=== PATIENT | female | born 1990 | race Asian ===

== ENCOUNTER → 2016-04-20 | Outpatient (CLI) | payer OTHER ==
--- NOTE | 2016-04-21 12:55 | EXERCISE STRESS ECHO ---
*NOTICE TO RECEIVING CONSTITUTION PARTY AGENCY This information is strictly Confidential and protected under [place] law. [place] law prohibits you from making any further disclosure of this information unless further disclosure is expressly permitted by the written consent of the person to whom it pertains or is authorized by law. A general authorization for the release of medical or other information is not sufficient for this purpose. Hospital accepts no responsibility if the information is made available to any other person, INCLUDING THE PATIENT. Interpretation Summary * Name: ORVILLE JIMENEZ Study Date: 04/20/2016 09:43 AM BP: 132/85 mmHg * Patient Location: [facility] HR: 66 * : 1990 (M/d/yyyy) Gender: Female Height: 62 in * Age: 26 yrs Ethnicity: Weight: 174 lb * Ordering Physician: Julia Simon * Referring Physician: Julia Simon * Performed By: Dulce Hawkins RDCS * * Reason For Study: ELEVATED BLOOD PRESSURE, CHEST PAIN * BSA: 1.8 m2 * History: ELEVATED BLOOD PRESSURE, CHEST PAIN * -- Conclusions -- * Normal stress echocardiogram at 13.4 METS and a peak heart rate of 87% maximum predicted. * No exercise induced chest pain. * No ECG changes. * Baseline echocardiogram notes normal left ventricular systolic function and no valvular pathology. Procedure Details * ECHOEX, CPT #43791 Left Ventricle * The left ventricle is normal in size. * There is normal left ventricular wall thickness. * Ejection Fraction = 55-60%. * Left ventricular systolic function is normal. * Resting wall motion: Normal. Stress wall motion: Appropriate increase in Left ventricular systolic function and decrease in cavity size. No stress induced segmental wall motion abnormalities. Right Ventricle * The right ventricle is normal in size and function. Atria * The left atrial size is normal. * Right atrial size is normal. * There is no evidence of atrial septal defect, but resolution does not allow assessment for a patent foramen ovale. Mitral Valve * The mitral valve is normal in structure and function. * There is no mitral valve stenosis. * Significant mitral regurgitation is absent. Tricuspid Valve * The tricuspid valve is normal in structure and function. * There is no tricuspid stenosis. * Significant tricuspid regurgitation is absent. Aortic Valve * The aortic valve is normal in structure and function. * No hemodynamically significant valvular aortic stenosis. * There is no significant aortic regurgitation. Pulmonic Valve * The pulmonary valve is not well seen, but the Doppler examination is normal without significant regurgitation or stenosis. Great Vessels * The aortic root is normal size. Pericardium * There is no pericardial effusion. Stress Parameters * Normal baseline electrocardiogram. * Stress ECG: No ST changes. No arrhythmias. * The stress portion of this study was personally supervised by the undersigned interpreting physician. * Rest heart rate was '66' BPM. * Rest blood pressure was '132/85' * Maximum heart rate achieved was 169 bpm. * Maximum heart rate was 87 % of maximum age-predicted heart rate. * Maximum blood pressure was '179/90' * Total exercise time was '12:00' * Maximum exercise MET level achieved was '13.40' METS * Maximum treadmill speed was '4.20' miles per hour. * Maximum treadmill elevation was '16.00'% grade. * Exercise was terminated due to 'ACHIEVING TARGET HR' MMode 2D Measurements and Calculations IVSd 0.85 cm IVSs 1.4 cm LVIDd 3.8 cm LVIDs 2.6 cm LVPWd 1.4 cm LVPWs 1.6 cm IVS/LVPW 0.62 FS 31.0 % EDV(Teich) 62.5 ml ESV(Teich) 25.3 ml EF(Teich) 59.4 % EDV(cubed) 55.4 ml ESV(cubed) 18.2 ml EF(cubed) 67.2 % % IVS thick 66.5 % % LVPW thick 21.4 % LV mass(C)d 136.1 grams LV mass(C)dI 75.5 grams/m\S\2 LV mass(C)s 139.0 grams LV mass(C)sI 77.2 grams/m\S\2 SV(Teich) 37.1 ml SI(Teich) 20.6 ml/m\S\2 SV(cubed) 37.2 ml SI(cubed) 20.7 ml/m\S\2 Ao root diam 2.7 cm Ao root area 5.9 cm\S\2 LA dimension 3.3 cm LA/Ao 1.2 LVAd ap4 31.6 cm\S\2 LVLd ap4 8.3 cm EDV(MOD-sp4) 101.5 ml EDV(sp4-el) 102.4 ml LVAs ap4 18.2 cm\S\2 LVLs ap4 6.8 cm ESV(MOD-sp4) 41.4 ml ESV(sp4-el) 41.3 ml EF(MOD-sp4) 59.3 % EF(sp4-el) 59.7 % LVAd ap2 27.6 cm\S\2 LVLd ap2 8.4 cm EDV(MOD-sp2) 79.1 ml EDV(sp2-el) 77.1 ml LVAs ap2 16.3 cm\S\2 LVLs ap2 7.3 cm ESV(MOD-sp2) 31.0 ml ESV(sp2-el) 31.1 ml EF(MOD-sp2) 60.9 % EF(sp2-el) 59.7 % LVLd %diff 1.2 % EDV(MOD-bp) 88.9 ml LVLs %diff 7.0 % ESV(MOD-bp) 37.0 ml EF(MOD-bp) 58.4 % SV(MOD-sp4) 60.2 ml SI(MOD-sp4) 33.4 ml/m\S\2 SV(MOD-sp2) 48.1 ml SI(MOD-sp2) 26.7 ml/m\S\2 SV(MOD-bp) 51.9 ml SI(MOD-bp) 28.8 ml/m\S\2 SV(sp4-el) 61.1 ml SI(sp4-el) 33.9 ml/m\S\2 SV(sp2-el) 46.0 ml SI(sp2-el) 25.5 ml/m\S\2 Doppler Measurements and Calculations MV E max mirna 128.3 cm/sec MV A max mirna 62.7 cm/sec MV E/A 2.0 MV dec time 0.19 sec Ao V2 max 155.3 cm/sec Ao max PG 9.6 mmHg Ao max PG (full) 4.2 mmHg LV V1 max PG 5.4 mmHg LV V1 max 116.3 cm/sec
== END | disposition home or self-care (01) ==
LOC: C.CPL 09:26
PROVIDERS: ATTEND Family Medicine
DX: I10 Essential (primary) hypertension (principal); R07.9 Chest pain, unspecified